=== PATIENT | female | born 1990 | race Caucasian/White ===

== ENCOUNTER 2020-05-05 15:45 | Inpatient (IN) | payer OTHER, SELFPAY ==
[2020-05-05 18:50] VITALS: BP 133/59; PULSE 113; RESP 18; TEMP 37.2; O2SAT 98; BMI 23.3
[2020-05-05 19:50] VITALS: BP 116/62; PULSE 102; RESP 15; TEMP 37.2; O2SAT 100
--- NOTE | 2020-05-05 20:54 | ED_ITS ---
HPI - Abdominal Pain General Chief Complaint: Abdominal Pain Stated Complaint: ABD PAIN - FEVER Time Seen by Provider: 05/05/20 20:49 Source: patient Mode of arrival: ambulatory History of Present Illness HPI narrative: This is a 30-year-old female with no significant past medical history who presents with 3 days of worsening suprapubic/lower abdominal discomfort and associated urinary pain/burning as well as nausea and vomiting which started last night but denies any diarrhea. Negative surgical abdomen history. Related Data Home Medications Medication Instructions Recorded Confirmed No Known Home Meds 05/05/20 05/05/20 Allergies Allergy/AdvReac Type Severity Reaction Status Date / Time acetaminophen [From Percocet] Allergy Shortness Verified 05/05/20 18:58 of Breath oxycodone [From Percocet] Allergy Shortness Verified 05/05/20 18:58 of Breath Review of Systems Review of Systems Pertinent positives and negatives as stated in HPI 10 point review of systems otherwise negative. Physical Exam Vital Signs: Vital Signs: Last Vital Signs Temp 99.8 F 05/05/20 23:33 Pulse 108 H 05/05/20 23:33 Resp 20 05/05/20 23:33 BP 115/58 L 05/05/20 23:33 Pulse Ox 99 05/05/20 23:33 Body Mass Index 23.3 VITAL SIGNS: Reviewed. GENERAL: Well developed, well nourished, mild distress. HEAD: Normocephalic/atraumatic, EYES: PERRLA, EOMI intact without pain EARS: Ext canals without abnormality, TMs non-bulging and non-erythematous NOSE: Nares patent bilateral OROPHARYNX: no oral lesions noted, posterior pharynx clear and non-erythematous without noted tonsillar enlargement/erythema/exudates NECK: Supple, no adenopathy LUNGS: Normal breath sounds. No adventitious sounds or accessory muscle use. SpO2<100> CARDIOVASCULAR: Regular rate and rhythm without noted murmurs, no JVD or lower extremity edema. ABDOMEN: Soft, diffusely tender over the lower abdomen without rebound, non- distended with bowel sounds. No rigidity. No guarding. No palpable masses or hernias noted, CVA tenderness on the right MUSCULOSKELETAL: No tenderness, deformities, or effusions noted on gross inspe ction. EXTREMITIES: No cyanosis, clubbing or edema. SKIN: Inspection of the skin reveals no rashes, ulcerations, jaundice, pallor, or petechiae. NEUROLOGIC: Alert and oriented x 4. Course Course Course Narrative: This is a 30-year-old female with history and clinical presentation most suspicious for renal colic versus pyelonephritis with sepsis. Blood cultures, lactic acid as well as antibiotics will be provided. Antibiotics will be provided as soon as labs are returned. IV fluids are not indicated at this time. -labs, UA, U preg, IV fluids, antiemetic, analgesia On review of all investigations patient is noted to meet sepsis criteria with suspected urine as the source and was given antibiotics. Otherwise, U preg is negative and chest x-ray is negative for acute findings. Case discussed with hospitalist for admission as sepsis secondary to urine and suspect pyelo. This case was discussed with the inpatient hospitalist team who is agreeable for admission. MDM - Abdominal Pain Lab Data Result diagrams: 05/05/20 21:12 05/05/20 21:11 Labs: Lab Results 05/05/20 05/05/20 05/05/20 Range/Units 21:11 21:11 21:12 WBC 29.6 H (4.8-10.8) X10*3/uL RBC 4.13 L (4.20-5.50) X10*6/uL Hgb 12.6 (12.0-16.0) g/dl Hct 37.5 (37-47) % MCV 90.8 (80-98) fL MCH 30.5 (27.0-33.0) pg MCHC 33.6 (31.0-35.0) g/dl RDW 12.6 (11.0-16.0) % Plt Count 199 (160-400) X10*3/uL MPV 10.4 (9.4-12.3) fL Immature Gran % (Auto) 2.1 H (0.0-0.4) % Neut % (Auto) 93.7 H (45-73) % Lymph % (Auto) 1.8 L (20-40) % [place] % (Auto) 1.8 L (2-11) % Eos % (Auto) 0.4 (0-4) % Baso % (Auto) 0.2 (0-2) % Lymph # (Auto) 0.5 L (1.2-4.9) X10*3/uL [place] # (Auto) 0.5 (0.1-1.2) X10*3/uL Eos # (Auto) 0.1 (0.0-0.4) X10*3/uL Baso # (Auto) 0.1 (0.0-0.2) X10*3/uL Abs Immat Gran (auto) 0.63 H (0.00-0.03) X10*3/uL Absolute Neuts (auto) 27.8 H (2.0-8.3) X10*3/uL Absolute Nucleated RBC 0.000 (0.0-0.012) X10*3/uL Nucleated RBC % (auto) 0.0 (0.0-0.2) /100WBC Smear Tech's Comments VERIFIED Sodium 136 (135-145) mmol/L Potassium 3.3 (3.3-5.1) mmol/l Chloride 102 (96-108) mmol/L Carbon Dioxide 22 (22-29) mmol/L Anion Gap 15 (12-20) BUN 9 (9-16) mg/dL Creatinine 0.76 (0.5-1.4) mg/dL Estim Creat Clear Calc 100.4 Estimated GFR > 60 Random Glucose 113 (60-115) mg/dL Lactic Acid 1.0 (0.5-2.0) mmol/L Calcium 8.9 (8.4-10.2) mg/dL Total Bilirubin 1.2 H (0.0-1.0) mg/dL AST 12 (5-31) U/L ALT 11 (0-31) U/L Alkaline Phosphatase 56 (39-117) U/L Total Protein 7.4 (6.5-8.0) g/dL Albumin 4.5 (3.5-5.0) g/dL Urine Color Urine Appearance Urine pH (5.0-8.0) Ur Specific [place] (1.005-1.025) Urine Protein (NEG-TRACE) MG/DL Urine Glucose (UA) (NEG) MG/DL Urine Ketones (NEG) MG/DL Urine Blood (NEG) Urine Nitrite (NEG) Ur Leukocyte Esterase (NEG) Urine RBC (0) /HPF Urine WBC (0-4) /HPF Urine WBC Clumps Ur Squamous Epith Cells /LPF Urine Bacteria /LPF Urine Mucus /LPF Urine Test (NEGATIVE) Urine Opiates Screen (Not Detect) Ur Barbiturates Screen (Not Detect) Ur Phencyclidine Scrn (Not Detect) Ur Amphetamines Screen (Not Detect) U Benzodiazepines Scrn (Not Detect) Urine Cocaine Screen (Not Detect) U Marijuana (THC) Screen (Not Detect) Coronavirus (PCR) (Negative) Influenza Type A (PCR) (Negative) Influenza Type B (PCR) (Negative) RSV RNA Qual (PCR) (Negative) 05/05/20 05/05/20 05/05/20 Range/Units 21:12 21:12 21:12 WBC (4.8-10.8) X10*3/uL RBC (4.20-5.50) X10*6/uL Hgb (12.0-16.0) g/dl Hct (37-47) % MCV (80-98) fL MCH (27.0-33.0) pg MCHC (31.0-35.0) g/dl RDW (11.0-16.0) % Plt Count (160-400) X10*3/uL MPV (9.4-12.3) fL Immature Gran % (Auto) (0.0-0.4) % Neut % (Auto) (45-73) % Lymph % (Auto) (20-40) % [place] % (Auto) (2-11) % Eos % (Auto) (0-4) % Baso % (Auto) (0-2) % Lymph # (Auto) (1.2-4.9) X10*3/uL [place] # (Auto) (0.1-1.2) X10*3/uL Eos # (Auto) (0.0-0.4) X10*3/uL Baso # (Auto) (0.0-0.2) X10*3/uL Abs Immat Gran (auto) (0.00-0.03) X10*3/uL Absolute Neuts (auto) (2.0-8.3) X10*3/uL Absolute Nucleated RBC (0.0-0.012) X10*3/uL Nucleated RBC % (auto) (0.0-0.2) /100WBC Smear Tech's Comments Sodium (135-145) mmol/L Potassium (3.3-5.1) mmol/l Chloride (96-108) mmol/L Carbon Dioxide (22-29) mmol/L Anion Gap (12-20) BUN (9-16) mg/dL Creatinine (0.5-1.4) mg/dL Estim Creat Clear Calc Estimated GFR Random Glucose (60-115) mg/dL Lactic Acid (0.5-2.0) mmol/L Calcium (8.4-10.2) mg/dL Total Bilirubin (0.0-1.0) mg/dL AST (5-31) U/L ALT (0-31) U/L Alkaline Phosphatase (39-117) U/L Total Protein (6.5-8.0) g/dL Albumin (3.5-5.0) g/dL Urine Color DARK YELLOW Urine Appearance HAZY Urine pH 6.0 (5.0-8.0) Ur Specific [place] >= 1.030 H (1.005-1.025) Urine Protein TRACE (NEG-TRACE) MG/DL Urine Glucose (UA) NEG (NEG) MG/DL Urine Ketones 40 (NEG) MG/DL Urine Blood 3+ H (NEG) Urine Nitrite NEG (NEG) Ur Leukocyte Esterase 1+ H (NEG) Urine RBC 5-9 H (0) /HPF Urine WBC 30-49 H (0-4) /HPF Urine WBC Clumps NOTED Ur Squamous Epith Cells 1+ /LPF Urine Bacteria 1+ /LPF Urine Mucus 3+ /LPF Urine Test NEGATIVE (NEGATIVE) Urine Opiates Screen Not Detected (Not Detect) Ur Barbiturates Screen Not Detected (Not Detect) Ur Phencyclidine Scrn Not Detected (Not Detect) Ur Amphetamines Screen Not Detected (Not Detect) U Benzodiazepines Scrn Not Detected (Not Detect) Urine Cocaine Screen Not Detected (Not Detect) U Marijuana (THC) Screen POSITIVE H (Not Detect) Coronavirus (PCR) (Negative) Influenza Type A (PCR) (Negative) Influenza Type B (PCR) (Negative) RSV RNA Qual (PCR) (Negative) 05/05/20 Range/Units 23:39 WBC (4.8-10.8) X10*3/uL RBC (4.20-5.50) X10*6/uL Hgb (12.0-16.0) g/dl Hct (37-47) % MCV (80-98) fL MCH (27.0-33.0) pg MCHC (31.0-35.0) g/dl RDW (11.0-16.0) % Plt Count (160-400) X10*3/uL MPV (9.4-12.3) fL Immature Gran % (Auto) (0.0-0.4) % Neut % (Auto) (45-73) % Lymph % (Auto) (20-40) % [place] % (Auto) (2-11) % Eos % (Auto) (0-4) % Baso % (Auto) (0-2) % Lymph # (Auto) (1.2-4.9) X10*3/uL [place] # (Auto) (0.1-1.2) X10*3/uL Eos # (Auto) (0.0-0.4) X10*3/uL Baso # (Auto) (0.0-0.2) X10*3/uL Abs Immat Gran (auto) (0.00-0.03) X10*3/uL Absolute Neuts (auto) (2.0-8.3) X10*3/uL Absolute Nucleated RBC (0.0-0.012) X10*3/uL Nucleated RBC % (auto) (0.0-0.2) /100WBC Smear Tech's Comments Sodium (135-145) mmol/L Potassium (3.3-5.1) mmol/l Chloride (96-108) mmol/L Carbon Dioxide (22-29) mmol/L Anion Gap (12-20) BUN (9-16) mg/dL Creatinine (0.5-1.4) mg/dL Estim Creat Clear Calc Estimated GFR Random Glucose (60-115) mg/dL Lactic Acid (0.5-2.0) mmol/L Calcium (8.4-10.2) mg/dL Total Bilirubin (0.0-1.0) mg/dL AST (5-31) U/L ALT (0-31) U/L Alkaline Phosphatase (39-117) U/L Total Protein (6.5-8.0) g/dL Albumin (3.5-5.0) g/dL Urine Color Urine Appearance Urine pH (5.0-8.0) Ur Specific [place] (1.005-1.025) Urine Protein (NEG-TRACE) MG/DL Urine Glucose (UA) (NEG) MG/DL Urine Ketones (NEG) MG/DL Urine Blood (NEG) Urine Nitrite (NEG) Ur Leukocyte Esterase (NEG) Urine RBC (0) /HPF Urine WBC (0-4) /HPF Urine WBC Clumps Ur Squamous Epith Cells /LPF Urine Bacteria /LPF Urine Mucus /LPF Urine Test (NEGATIVE) Urine Opiates Screen (Not Detect) Ur Barbiturates Screen (Not Detect) Ur Phencyclidine Scrn (Not Detect) Ur Amphetamines Screen (Not Detect) U Benzodiazepines Scrn (Not Detect) Urine Cocaine Screen (Not Detect) U Marijuana (THC) Screen (Not Detect) Coronavirus (PCR) NEGATIVE (Negative) Influenza Type A (PCR) NEGATIVE (Negative) Influenza Type B (PCR) NEGATIVE (Negative) RSV RNA Qual (PCR) NEGATIVE (Negative) Discharge Plan Discharge Clinical Impression: Pyelonephritis Sepsis Qualifiers: Sepsis type: sepsis due to unspecified organism Sepsis acute organ dysfunction status: without acute organ dysfunction Qualified Code(s): A41.9 - Sepsis, unspecified organism Patient Disposition: Admitted As Inpatient [facility] Past Medical History Source: nursing notes reviewed Social History Social History Alcohol intake: never Smoked in Last 30 Days: No Use of substances other than those prescribed or required for medical reasons: Yes Substance Use Type: Marijuana Substance Use Frequency: Daily Last Used Substance: Days (ago) Advance Directives: No Advance Directives Information Provided: No
[2020-05-05 21:26] LABS: Basophils Absolute Auto 0.1 X10*3/uL (0.0-0.2); Basophils Percent Auto 0.2 % (0-2); Eosinophils Absolute Auto 0.1 X10*3/uL (0.0-0.4); Eosinophils Percent Auto 0.4 % (0-4); Hematocrit 37.5 % (37-47); Hemoglobin 12.6 g/dl (12.0-16.0); Imm Gran Abs Auto 0.63 X10*3/uL (0.00-0.03); Imm Gran Pct Auto 2.1 % (0.0-0.4); Lymphocytes Absolute Auto 0.5 X10*3/uL (1.2-4.9); Lymphocytes Percent Auto 1.8 % (20-40); MANUAL DIFF FLAG SCAN; Mean Corpuscular HGB Conc 33.6 g/dl (31.0-35.0); Mean Corpuscular Hemoglobin 30.5 pg (27.0-33.0); Mean Corpuscular Volume 90.8 fL (80-98); Mean Platelet Volume 10.4 fL (9.4-12.3); Monocytes Absolute Auto 0.5 X10*3/uL (0.1-1.2); Monocytes Percent Auto 1.8 % (2-11); Neutrophils Absolute Auto 27.8 X10*3/uL (2.0-8.3); Neutrophils Percent Auto 93.7 % (45-73); Platelet Count 199 X10*3/uL (160-400); Red Blood Count 4.13 X10*6/uL (4.20-5.50); Red Cell Distribution Width 12.6 % (11.0-16.0); SCAN SMEAR FLAG 1; White Blood Count 29.6 X10*3/uL (4.8-10.8)
[2020-05-05 21:28] LABS: Glucose Urine UA NEG (NEG); Leukocyte Esterase Urine 1+ (NEG); Nitrite Urine NEG (NEG); Specific Gravity - Urine >= 1.030 (1.005-1.025); Urine Blood 3+ (NEG); Urine Ketones 40 MG/DL (NEG); Urine Protein TRACE MG/DL (NEG-TRACE)
[2020-05-05 21:33] LABS: Appearance Urine HAZY; Color Urine DARK YELLOW
[2020-05-05 21:34] LABS: UPreg QC Valid YES; Urine Pregnancy NEGATIVE (NEGATIVE)
[2020-05-05 21:39] LABS: Bacteria Urine 1+ /LPF; Mucus Urine 3+ /LPF; Squamous Epithelial Cell Urine 1+ /LPF; WBC Clumps Urine NOTED; WBC Urine 30-49 /HPF (0-4)
[2020-05-05 21:43] LABS: SLIDE REVIEW VERIFIED
--- NOTE | 2020-05-05 21:43 | CT_ITS ---
EXAMINATION: CT ABDOMEN AND PELVIS WITH CONTRAST CLINICAL INFORMATION: Lower abdominal and right flank pain. COMPARISON: None TECHNIQUE: Multidetector volumetric images were obtained from the superior aspect of the liver through the pubic symphysis following administration 85 mL of Omnipaque 350 intravenous contrast. Sagittal and coronal reformatted images were obtained on the technologist's workstation. Oral contrast: No This CT examination was performed using dose optimization techniques as appropriate, variously including the following: *Automated exposure control *Adjustment of mA and/or kV according to patient size (this includes techniques or standardized protocols for targeted exams where dose is matched to indication/reason for exam; i.e. extremities or head) *Use of iterative reconstruction technique DLP: 620.91 mGy-cm FINDINGS: LUNG BASES: The visualized lung bases are unremarkable. LIVER, GALLBLADDER, AND BILIARY TREE: Unremarkable. PANCREAS: Unremarkable. SPLEEN: Unremarkable. ADRENAL GLANDS: Unremarkable. KIDNEYS AND URETERS: The kidneys are normal in size, shape, and attenuation. No hydronephrosis, hydroureter, or calculi seen. No perinephric stranding. BLADDER: Unremarkable. GASTROINTESTINAL TRACT: The small and large bowel are unremarkable. The appendix is unremarkable. ABDOMINAL WALL: Very small fat-containing inferior periumbilical hernia. LYMPH NODES: Normal. VASCULAR: There is mild ectasia of the gonadal veins bilaterally with associated ectasia of the periuterine veins. PELVIC VISCERA: Retroverted/retroflexed uterus without focal abnormality. No adnexal abnormality. Mild free fluid in the cul-de-sac. OSSEOUS STRUCTURES: Unremarkable. CT/CT abdomen pelvis w con IMPRESSION: 1. No significant renal abnormality. No evidence for pyelonephritis. 2. Mild ectasia of the gonadal veins bilaterally with associated ectasia of the periuterine vessels suggesting pelvic congestion. Mild free fluid in the cul-de-sac is likely physiologic.2
[2020-05-05 21:53] LABS: Alanine Aminotransferase 11 U/L (0-31); Albumin Level 4.5 g/dL (3.5-5.0); Alkaline Phosphatase 56 U/L (39-117); Anion Gap 15 (12-20); Aspartate Amino Transferase 12 U/L (5-31); Bilirubin Total 1.2 mg/dL (0.0-1.0); Blood Urea Nitrogen 9 mg/dL (9-16); Calcium 8.9 mg/dL (8.4-10.2); Carbon Dioxide 22 mmol/L (22-29); Chloride 102 mmol/L (96-108); Creatinine Clr Calc Pharmacy 100.4; Estimated Glomerular Filt Rate > 60; Glucose Random 113 mg/dL (60-115); Potassium 3.3 mmol/l (3.3-5.1); Sodium 136 mmol/L (135-145); Total Protein 7.4 g/dL (6.5-8.0)
[2020-05-05 21:54] VITALS: BP 103/50; PULSE 101; RESP 20; TEMP 37.3; O2SAT 99
[2020-05-05] MEDS: ondansetron HCL 4 MG/2 ML VIAL IVPUSH (21:54)
[2020-05-05] MEDS: 0.9 % Sodium Chloride 1,000 ML 999 ML IV (21:54)
[2020-05-05] MEDS: iohexoL 350 MG/ML 100 ML INFUS..BTL IV (22:12)
[2020-05-05 22:20] VITALS: TEMP 37.9
--- NOTE | 2020-05-05 22:42 | XR_ITS ---
EXAMINATION: XR CHEST CLINICAL INFORMATION: Cough COMPARISON: None TECHNIQUE: Frontal view of the chest was obtained. FINDINGS: Bilateral nipple piercings. The lungs are well expanded. There is no focal consolidation, edema, or effusion. No pneumothorax. The cardiomediastinal silhouette is within normal limits. No acute osseous abnormality. XR/XR chest 1V IMPRESSION: No acute pulmonary finding.
[2020-05-05 23:28] LABS: Amphetamine Screen Urine Not Detected (Not Detect); Barbiturates, Urine Not Detected (Not Detect); Benzodiazepines Screen Urine Not Detected (Not Detect); Cannabinoid Screen Urine POSITIVE (Not Detect); Cocaine Screen Urine Not Detected (Not Detect); Opiate Screen Urine Not Detected (Not Detect); Phencyclidine Screen Urine Not Detected (Not Detect)
[2020-05-05] MEDS: cefTRIAXone sodium 2 GM in 0.9 % Sodium Chloride 50 ML IV (23:32)
[2020-05-05 23:33] VITALS: BP 115/58; PULSE 108; RESP 20; TEMP 37.7; O2SAT 99
[2020-05-05] MEDS: Ketorolac Tromethamine 15 MG/ML VIAL IVPUSH (23:33)
[2020-05-06 00:56] LABS: Influenza A PCR NEGATIVE (Negative); Influenza B PCR NEGATIVE (Negative); Resp Syncy Virus RNA Qual PCR NEGATIVE (Negative); SARS COV2 PCR INHOUSE NEGATIVE (Negative)
--- NOTE | 2020-05-06 01:56 | PM.IMHP ---
History of Present Illness Date of Service: 05/06/20 Chief Complaint: Lower abd pain, dysuria, nausea/vomiting 30 year old woman without significant past medical history presented with 3 days of lower abdominal pain/pressure associated with fevers and dysuria. She also noted right flank pain today as well. No history of recurrent UTIs or kidney stones. States she felt the pressure and had been having periods of chills and sweats at home. Did measure a fever at home as well. On presentation was noted to have significant leukocytosis and fever/tachycardia so referred for admission as she had been having nausea and vomiting and was unlikely to be able to tolerate oral antibiotics at home. Review of Systems Constitutional: Comments: Fevers and chills noted Cardiovascular: Comments: No chest pain Respiratory: Comments: No cough or dyspnea Gastrointestinal: Gastrointestinal: Reports nausea and Reports vomiting Comments: Lower abd pain Genitourinary: Comments: Dysuria Musculoskeletal: Comments: Flank pain Psychiatric: Psychiatric: Reports no additional psychiatric complaints PMFSH Functional capacity: independent ambulation Patient : No Family history: reviewed and not pertinent Social History Alcohol intake: never Smoked in Last 30 Days: No Use of substances other than those prescribed or required for medical reasons: Yes Substance Use Type: Marijuana Substance Use Frequency: Daily Last Used Substance: Days (ago) Advance Directives: No Advance Directives Information Provided: No Meds Allergies Allergy/AdvReac Type Severity Reaction Status Date / Time acetaminophen [From Percocet] Allergy Shortness Verified 05/05/20 18:58 of Breath oxycodone [From Percocet] Allergy Shortness Verified 05/05/20 18:58 of Breath Home Medications Medication Instructions Recorded Confirmed Type No Known Home Meds 05/05/20 05/05/20 History Physical Exam Vital Signs and Narrative: Vital Signs: Last Vital Signs Temp 99.8 F 05/05/20 23:33 Pulse 108 H 05/05/20 23:33 Resp 20 05/05/20 23:33 BP 115/58 L 05/05/20 23:33 Pulse Ox 99 05/05/20 23:33 Body Mass Index 23.3 Const: General: cooperative and no acute distress HENMT: Head: Yes normal to inspection Eyes: General: appearance normal, both eyes and all related structures Chest: Chest palpation & inspection: normal inspection of the chest Resp: Other: No insp crackles or exp wheezes Effort & Inspection: normal respiratory effort Cardio: Rate: regular rate Rhythm: regular rhythm Heart sounds: S1 normal heart sound present and S2 normal heart sound present GI: Other: tender in lower abdomen, no guarding Inspection: Yes normal to inspection Auscultation: normal bowel sounds : General: Yes CVA tenderness (right side) Back/Spine/Pelvis: Back: CVA tenderness (right side) Skin: General skin exam: no rashes or lesions noted Psych: Other: no anxiety Appearance: grossly normal Results Labs CBC and Chem 7: 05/05/20 21:12 05/05/20 21:11 Labs: Laboratory Results - last 24 hr 05/05/20 05/05/20 05/05/20 21:11 21:11 21:12 MCV 90.8 MCH 30.5 MCHC 33.6 RDW 12.6 Plt Count 199 MPV 10.4 Immature Gran % (Auto) 2.1 H Neut % (Auto) 93.7 H Lymph % (Auto) 1.8 L [place] % (Auto) 1.8 L Eos % (Auto) 0.4 Baso % (Auto) 0.2 Lymph # (Auto) 0.5 L [place] # (Auto) 0.5 Eos # (Auto) 0.1 Baso # (Auto) 0.1 Abs Immat Gran (auto) 0.63 H Absolute Neuts (auto) 27.8 H Absolute Nucleated RBC 0.000 Nucleated RBC % (auto) 0.0 Smear Tech's Comments VERIFIED Anion Gap 15 Estim Creat Clear Calc 100.4 Estimated GFR > 60 Random Glucose 113 Lactic Acid 1.0 Calcium 8.9 Total Bilirubin 1.2 H AST 12 ALT 11 Alkaline Phosphatase 56 Total Protein 7.4 Albumin 4.5 Urine Color Urine Appearance Urine pH Ur Specific [place] Urine Protein Urine Glucose (UA) Urine Ketones Urine Blood Urine Nitrite Ur Leukocyte Esterase Urine RBC Urine WBC Urine WBC Clumps Ur Squamous Epith Cells Urine Bacteria Urine Mucus Urine Test Urine Opiates Screen Ur Barbiturates Screen Ur Phencyclidine Scrn Ur Amphetamines Screen U Benzodiazepines Scrn Urine Cocaine Screen U Marijuana (THC) Screen Coronavirus (PCR) Influenza Type A (PCR) Influenza Type B (PCR) RSV RNA Qual (PCR) 05/05/20 05/05/20 05/05/20 21:12 21:12 21:12 MCV MCH MCHC RDW Plt Count MPV Immature Gran % (Auto) Neut % (Auto) Lymph % (Auto) [place] % (Auto) Eos % (Auto) Baso % (Auto) Lymph # (Auto) [place] # (Auto) Eos # (Auto) Baso # (Auto) Abs Immat Gran (auto) Absolute Neuts (auto) Absolute Nucleated RBC Nucleated RBC % (auto) Smear Tech's Comments Anion Gap Estim Creat Clear Calc Estimated GFR Random Glucose Lactic Acid Calcium Total Bilirubin AST ALT Alkaline Phosphatase Total Protein Albumin Urine Color DARK YELLOW Urine Appearance HAZY Urine pH 6.0 Ur Specific [place] >= 1.030 H Urine Protein TRACE Urine Glucose (UA) NEG Urine Ketones 40 Urine Blood 3+ H Urine Nitrite NEG Ur Leukocyte Esterase 1+ H Urine RBC 5-9 H Urine WBC 30-49 H Urine WBC Clumps NOTED Ur Squamous Epith Cells 1+ Urine Bacteria 1+ Urine Mucus 3+ Urine Test NEGATIVE Urine Opiates Screen Not Detected Ur Barbiturates Screen Not Detected Ur Phencyclidine Scrn Not Detected Ur Amphetamines Screen Not Detected U Benzodiazepines Scrn Not Detected Urine Cocaine Screen Not Detected U Marijuana (THC) Screen POSITIVE H Coronavirus (PCR) Influenza Type A (PCR) Influenza Type B (PCR) RSV RNA Qual (PCR) 05/05/20 23:39 MCV MCH MCHC RDW Plt Count MPV Immature Gran % (Auto) Neut % (Auto) Lymph % (Auto) [place] % (Auto) Eos % (Auto) Baso % (Auto) Lymph # (Auto) [place] # (Auto) Eos # (Auto) Baso # (Auto) Abs Immat Gran (auto) Absolute Neuts (auto) Absolute Nucleated RBC Nucleated RBC % (auto) Smear Tech's Comments Anion Gap Estim Creat Clear Calc Estimated GFR Random Glucose Lactic Acid Calcium Total Bilirubin AST ALT Alkaline Phosphatase Total Protein Albumin Urine Color Urine Appearance Urine pH Ur Specific [place] Urine Protein Urine Glucose (UA) Urine Ketones Urine Blood Urine Nitrite Ur Leukocyte Esterase Urine RBC Urine WBC Urine WBC Clumps Ur Squamous Epith Cells Urine Bacteria Urine Mucus Urine Test Urine Opiates Screen Ur Barbiturates Screen Ur Phencyclidine Scrn Ur Amphetamines Screen U Benzodiazepines Scrn Urine Cocaine Screen U Marijuana (THC) Screen Coronavirus (PCR) NEGATIVE Influenza Type A (PCR) NEGATIVE Influenza Type B (PCR) NEGATIVE RSV RNA Qual (PCR) NEGATIVE Imaging Radiologist's Impressions: Impressions Abdomen/Pelvis CT 05/05/20 21:43 IMPRESSION: 1. No significant renal abnormality. No evidence for pyelonephritis. 2. Mild ectasia of the gonadal veins bilaterally with associated ectasia of the periuterine vessels suggesting pelvic congestion. Mild free fluid in the cul-de-sac is likely physiologic.2 Chest X-Ray 05/05/20 22:42 IMPRESSION: No acute pulmonary finding. Assessment and Plan (1) Sepsis: Qualifiers: Sepsis acute organ dysfunction status: without acute organ dysfunction Sepsis type: sepsis due to unspecified organism Qualified Code(s): A41.9 - Sepsis, unspecified organism Status: Acute (2) Pyelonephritis: Status: Acute 30 year old woman presented with pyelonephritis and sepsis (SIRS criteria include tachycardia, fever, leukocytosis). Also had nausea and vomiting so was referred for inpatient admission as doubtful she could take PO antibiotics consistenly. Sepsis due to pyelonephritis Started on Ceftriaxone in ED-continue at 1 gram q24 hr dosing. Followup on urine cultures. Blood cultures not drawn prior to Ceftriaxone so would be low yield to draw them now. Pain control with IV Toradol. DVT proph She ambulates so low risk. Code status Full code.
[2020-05-06 03:00] VITALS: BP 103/53; PULSE 99; RESP 16; TEMP 37.1; O2SAT 100
[2020-05-06] MEDS: 0.9 % Sodium Chloride 1,000 ML 100 ML IVCONT ×3 (03:16→16:13)
[2020-05-06 03:25] VITALS: BMI 20.2
[2020-05-06] MEDS: Ketorolac Tromethamine 15 MG/ML VIAL IV ×4 (04:13→22:22)
[2020-05-06 07:21] VITALS: BP 107/55; PULSE 86; RESP 18; TEMP 36.8; O2SAT 98
--- NOTE | 2020-05-06 10:04 | MHC.CM.PN ---
dc plan home no servceis pt has own transportaion home
[2020-05-06 12:00] VITALS: BP 101/50; PULSE 91; RESP 16; TEMP 36.7; O2SAT 100
[2020-05-06 15:36] VITALS: BP 108/58; PULSE 100; RESP 18; TEMP 37.6; O2SAT 99
[2020-05-06 18:55] VITALS: BP 109/54; PULSE 91; RESP 18; TEMP 37.2; O2SAT 98
[2020-05-06] MEDS: cefTRIAXone sodium 1 GM in 0.9 % Sodium Chloride 50 ML IV (22:24)
[2020-05-06 23:26] VITALS: BP 103/52; PULSE 96; RESP 18; TEMP 36.6; O2SAT 96
[2020-05-06] MEDS: 0.9 % Sodium Chloride Flush 3 ML SYRINGE IVFLUSH (23:57)
[2020-05-07] MEDS: 0.9 % Sodium Chloride 1,000 ML 100 ML IVCONT (03:17)
[2020-05-07 03:32] VITALS: BP 115/58; PULSE 100; RESP 20; TEMP 36.9; O2SAT 100
[2020-05-07 07:07] LABS: Basophils Percent Auto 0.2 % (0-2); Eosinophils Percent Auto 0.1 % (0-4); Hematocrit 31.7 % (37-47); Hemoglobin 10.6 g/dl (12.0-16.0); Imm Gran Abs Auto 0.35 X10*3/uL (0.00-0.03); Imm Gran Pct Auto 1.9 % (0.0-0.4); Lymphocytes Absolute Auto 0.7 X10*3/uL (1.2-4.9); Lymphocytes Percent Auto 3.6 % (20-40); MANUAL DIFF FLAG SCAN; Mean Corpuscular HGB Conc 33.4 g/dl (31.0-35.0); Mean Corpuscular Hemoglobin 30.4 pg (27.0-33.0); Mean Corpuscular Volume 90.8 fL (80-98); Mean Platelet Volume 10.6 fL (9.4-12.3); Monocytes Absolute Auto 0.3 X10*3/uL (0.1-1.2); Monocytes Percent Auto 1.4 % (2-11); Neutrophils Absolute Auto 17.2 X10*3/uL (2.0-8.3); Neutrophils Percent Auto 92.8 % (45-73); Platelet Count 170 X10*3/uL (160-400); Red Blood Count 3.49 X10*6/uL (4.20-5.50); Red Cell Distribution Width 12.6 % (11.0-16.0); SCAN SMEAR FLAG 1; White Blood Count 18.5 X10*3/uL (4.8-10.8)
[2020-05-07 07:08] LABS: Anion Gap 13 (12-20); Blood Urea Nitrogen 10 mg/dL (9-16); Calcium 7.6 mg/dL (8.4-10.2); Carbon Dioxide 21 mmol/L (22-29); Chloride 105 mmol/L (96-108); Creatinine Clr Calc Pharmacy 112.8; Estimated Glomerular Filt Rate > 60; Glucose Random 83 mg/dL (60-115); Potassium 3.2 mmol/l (3.3-5.1); Sodium 136 mmol/L (135-145)
[2020-05-07 07:33] LABS: SLIDE REVIEW VERIFIED
[2020-05-07 07:41] VITALS: BP 101/52; PULSE 95; RESP 18; TEMP 37.3; O2SAT 99
--- NOTE | 2020-05-07 10:26 | HO.PM.IMPN ---
Subjective Subjective Date of Service: 05/07/20 Interval History: Seen in follow-up for sepsis related to acute pyelonephritis/UTI. Still having lots of pain and not able tolerate oral intake Review of Systems Gen: no fever Resp: no sob, no cough CV: no chest, no LIGHT, no leg edema GI: No n/v, abdominal and right flank ternderness Neuro: No confusion Physical Exam Vital Signs: Vital Signs: Last Vital Signs Temp 99.2 F 05/07/20 07:41 Pulse 95 05/07/20 07:41 Resp 18 05/07/20 07:41 BP 101/52 L 05/07/20 07:41 Pulse Ox 99 05/07/20 07:41 Body Mass Index 20.2 General: AO X 3, no acute distress Resp: CTA bilateral CVS: S1,S2,RRR GI: +BS, NT, no distention, righ flank tenderness Skin: No rash Neuro: motor grossly intact Psych: appropriate affect Objective Data Current Medications Generic Name Dose Route Start Last Admin Trade Name Freq PRN Reason Stop Dose Admin Sodium Chloride 1,000 mls @ 100 mls/hr 05/06/20 01:45 05/07/20 03:17 Ns IVCONT 100 mls/hr .Q10H ERICA Administration Ceftriaxone Sodium 1 gm/ 50 mls @ 100 mls/hr 05/06/20 22:00 05/06/20 23:17 Sodium Chloride IV Infused DAILY@2200 ERICA Infusion Ketorolac Tromethamine 15 mg 05/07/20 09:31 Ketorolac Tromethamine 15 Mg/Ml Vial IVPUSH Q6H PRN Pain, Mild (Pain Scale 1-3) Oxycodone HCl 5 mg 05/06/20 08:30 Oxycodone Hcl Immed Release 5 Mg Tablet PO Q4H PRN Pain, Severe (Pain Scale 7-10) Sodium Chloride 3 ml 05/06/20 08:00 05/07/20 08:30 0.9 % Sodium Chloride Flush 3 Ml Syringe IVFLUSH Not Given QSHIFT [facility] Labs CBC & Chem 7: 05/07/20 05:27 05/07/20 05:27 Microbiology Microbiology Results: Microbiology 05/05/20 21:11 Blood - Venous Blood Culture - Preliminary No growth after 24 hours. 05/05/20 21:12 Blood - Venous Blood Culture - Preliminary No growth after 24 hours. 05/05/20 Unknown Urine clean catch - Clean Catch Midstream Urine Culture - Preliminary No growth to date. Assessment and Plan (1) Sepsis: Status: Acute (2) Pyelonephritis: Status: Acute Assessment and Plan: 30 year old woman presented with pyelonephritis and sepsis (SIRS criteria include tachycardia, fever, leukocytosis). Sepsis due to pyelonephritis-- Leukocytosis is down to 18K from 29K. She is still not tolerating Oral and having lots pain. Urine and blood cultures negative. -Continue Ceftriaxone D2, follow cultures, Toradol for pain. ID consult DVT proph She ambulates so low risk. Code status Full code.
[2020-05-07 11:33] VITALS: BP 122/61; PULSE 89; RESP 18; TEMP 37.2; O2SAT 100
[2020-05-07 12:01] LABS: Anion Gap 13 (12-20); Blood Urea Nitrogen 9 mg/dL (9-16); Calcium 7.7 mg/dL (8.4-10.2); Carbon Dioxide 22 mmol/L (22-29); Chloride 104 mmol/L (96-108); Creatinine Clr Calc Pharmacy 116.4; Estimated Glomerular Filt Rate > 60; Glucose Random 89 mg/dL (60-115); Potassium 3.1 mmol/l (3.3-5.1); Sodium 136 mmol/L (135-145)
[2020-05-07] MEDS: Ketorolac Tromethamine 15 MG/ML VIAL IVPUSH ×2 (12:16→22:03)
[2020-05-07 14:24] VITALS: BP 120/53; PULSE 83; RESP 18; TEMP 36.8; O2SAT 98
[2020-05-07 15:20] VITALS: BP 118/57; PULSE 75; RESP 18; TEMP 36.9; O2SAT 99
[2020-05-07] MEDS: 0.9 % Sodium Chloride Flush 3 ML SYRINGE IVFLUSH ×2 (15:37→22:04)
[2020-05-07 19:19] VITALS: BP 113/59; PULSE 80; RESP 18; TEMP 37.1; O2SAT 100
[2020-05-07] MEDS: cefTRIAXone sodium 1 GM in 0.9 % Sodium Chloride 50 ML IV (22:03)
[2020-05-08 01:13] VITALS: BP 120/65; PULSE 81; RESP 18; TEMP 36.9; O2SAT 99
[2020-05-08 04:28] VITALS: BP 110/59; PULSE 67; RESP 18; TEMP 37.3; O2SAT 99
[2020-05-08 07:52] LABS: Hematocrit 31.1 % (37-47); Hemoglobin 10.4 g/dl (12.0-16.0); Mean Corpuscular HGB Conc 33.4 g/dl (31.0-35.0); Mean Corpuscular Hemoglobin 30.2 pg (27.0-33.0); Mean Corpuscular Volume 90.4 fL (80-98); Mean Platelet Volume 10.3 fL (9.4-12.3); Platelet Count 195 X10*3/uL (160-400); Red Blood Count 3.44 X10*6/uL (4.20-5.50); Red Cell Distribution Width 12.6 % (11.0-16.0); White Blood Count 9.4 X10*3/uL (4.8-10.8)
[2020-05-08 08:00] VITALS: BP 115/57; PULSE 88; RESP 16; TEMP 37.1; O2SAT 98
[2020-05-08] MEDS: 0.9 % Sodium Chloride Flush 3 ML SYRINGE IVFLUSH (08:08)
--- NOTE | 2020-05-08 08:13 | PM.DS ---
DS: Providers Provider Date of admission: 05/06/20 01:43 Primary care physician: Unknown Physician DS: Diagnosis Discharge Diagnosis (1) Sepsis: Status: Resolved (2) Pyelonephritis: Status: Acute DS: Medications Discharge Medications Home Medications: Home Medications Medication Instructions Recorded Confirmed No Known Home Meds 05/05/20 05/05/20 DS: Summary Hospital Course Hospital Course: Chief Complaint: Lower abd pain, dysuria, nausea/vomiting 30 year old woman without significant past medical history presented with 3 days of lower abdominal pain/pressure associated with fevers and dysuria. She also noted right flank pain today as well. No history of recurrent UTIs or kidney stones. States she felt the pressure and had been having periods of chills and sweats at home. Did measure a fever at home as well. On presentation was noted to have significant leukocytosis and fever/tachycardia so referred for admission as she had been having nausea and vomiting and was unlikely to be able to tolerate oral antibiotics at home. Hospital course: Patient was admitted for acute pyelonephritis with sepsis. She was treated in the hospital with IV [place]ftri[place] [address] has not come down to [phone] which is normal. She is not having any fever her flank pain and abdominal pain has significantly improved. Urine culture has not grown anything. She will be transitioned to oral Ceftin for total of 14 days of treatment. She feels comfortable going home today. She is advised to follow up with primary care physician or return to the hospital should her symptoms continue to escalate. Time Spent with Patient Time attestation: Total time spent providing and/or coordinating discharge services: Physical Exam Vital Signs: Vital Signs: Last Vital Signs Temp 99.1 F 05/08/20 04:28 Pulse 67 05/08/20 04:28 Resp 18 05/08/20 04:28 BP 110/59 L 05/08/20 04:28 Pulse Ox 99 05/08/20 04:28 Body Mass Index 20.2 General: AO X 3, no acute distress Resp: CTA bilateral CVS: S1,S2,RRR GI: +BS, NT, no distention Skin: No rash Neuro: motor grossly intact Psych: appropriate affect DS: Data Data Completed and Pending Labs on day of discharge: 05/05/20 Urine Culture Routine 05/05/20 20:49 0.9 % Sodium Chloride [Ns] 1,000 ml IV 999 mls/hr ondansetron HCL [Zofran] 4 mg IVPUSH ONCE ONE 05/05/20 21:11 Comprehensive Met. Panel Stat Lactic Acid Stat 05/05/20 21:12 Complete Blood Count Auto Diff Stat Drug Screen Urine Stat SLIDE REVIEW Stat Ur Preg Test Stat Ketorolac Tromethamine [Toradol] 15 mg IVPUSH ONCE ONE 05/05/20 21:41 cefTRIAXone sodium [Rocephin] 2 gm 0.9 % Sodium Chloride [Ns] 50 ml IV ONCE 05/05/20 21:43 CT abdomen pelvis w con Stat 05/05/20 22:12 iohexoL 350 MG/ML [Omnipaque 350 MG/ML] 100 ml IV ONCE ONE 05/05/20 22:42 XR chest 1V Stat Add Laboratory Test Stat 05/05/20 22:54 cefTRIAXone sodium [Rocephin] 2 gm .ROUTE .STK-MED ONE 05/05/20 23:39 SARS-CoV2/FLU/RSV Stat 05/06/20 01:42 Transfer Order Routine 05/06/20 01:43 IV insert/maintain Q4HR Intake and Output QSHIFTE Vital Signs QSHIFT 05/06/20 01:47 Ketorolac Tromethamine [Toradol] 15 mg IVPUSH Q6H PRN 05/06/20 04:00 Ketorolac Tromethamine [Toradol] 15 mg IV Q6H 05/06/20 08:00 0.9 % Sodium Chloride Flush [NS Flush] 3 ml IVFLUSH QSHIFT 05/06/20 22:16 cefTRIAXone sodium [Rocephin] 1 gm .ROUTE .STK-MED ONE 05/07/20 05:27 Basic Metabolic Panel Routine Complete Blood Count Auto Diff Routine SLIDE REVIEW Routine 05/07/20 10:40 Transfer Order Routine 05/07/20 11:20 Basic Metabolic Panel Routine 05/07/20 15:22 Transfer Order Routine 05/07/20 21:58 cefTRIAXone sodium [Rocephin] 1 gm .ROUTE .STK-MED ONE 05/08/20 06:58 Complete Blood Count no Diff DAILY@0600 Laboratory Last Values WBC 9.4 X10*3/uL (4.8-10.8) 05/08/20 06:58 WBC Cancelled 05/08/20 06:58 RBC 3.44 X10*6/uL (4.20-5.50) L 05/08/20 06:58 RBC Cancelled 05/08/20 06:58 Hgb 10.4 g/dl (12.0-16.0) L 05/08/20 06:58 Hgb Cancelled 05/08/20 06:58 Hct 31.1 % (37-47) L 05/08/20 06:58 Hct Cancelled 05/08/20 06:58 MCV 90.4 fL (80-98) 05/08/20 06:58 MCV Cancelled 05/08/20 06:58 MCH 30.2 pg (27.0-33.0) 05/08/20 06:58 MCH Cancelled 05/08/20 06:58 MCHC 33.4 g/dl (31.0-35.0) 05/08/20 06:58 MCHC Cancelled 05/08/20 06:58 RDW 12.6 % (11.0-16.0) 05/08/20 06:58 RDW Cancelled 05/08/20 06:58 Plt Count 195 X10*3/uL (160-400) 05/08/20 06:58 Plt Count Cancelled 05/08/20 06:58 MPV 10.3 fL (9.4-12.3) 05/08/20 06:58 MPV Cancelled 05/08/20 06:58 Immature Gran % (Auto) 1.9 % (0.0-0.4) H 05/07/20 05:27 Neut % (Auto) 92.8 % (45-73) H 05/07/20 05:27 Lymph % (Auto) 3.6 % (20-40) L 05/07/20 05:27 [place] % (Auto) 1.4 % (2-11) L 05/07/20 05:27 Eos % (Auto) 0.1 % (0-4) 05/07/20 05:27 Baso % (Auto) 0.2 % (0-2) 05/07/20 05:27 Lymph # (Auto) 0.7 X10*3/uL (1.2-4.9) L 05/07/20 05:27 [place] # (Auto) 0.3 X10*3/uL (0.1-1.2) 05/07/20 05:27 Eos # (Auto) 0.0 X10*3/uL (0.0-0.4) 05/07/20 05:27 Baso # (Auto) 0.0 X10*3/uL (0.0-0.2) 05/07/20 05:27 Abs Immat Gran (auto) 0.35 X10*3/uL (0.00-0.03) H 05/07/20 05:27 Absolute Neuts (auto) 17.2 X10*3/uL (2.0-8.3) H 05/07/20 05:27 Absolute Nucleated RBC 0.000 X10*3/uL (0.0-0.012) 05/08/20 06:58 Absolute Nucleated RBC Cancelled 05/08/20 06:58 Nucleated RBC % (auto) 0.0 /100WBC (0.0-0.2) 05/08/20 06:58 Nucleated RBC % (auto) Cancelled 05/08/20 06:58 Smear Tech's Comments VERIFIED 05/07/20 05:27 Sodium 136 mmol/L (135-145) 05/07/20 11:20 Potassium 3.1 mmol/l (3.3-5.1) L 05/07/20 11:20 Chloride 104 mmol/L (96-108) 05/07/20 11:20 Carbon Dioxide 22 mmol/L (22-29) 05/07/20 11:20 Anion Gap 13 (12-20) 05/07/20 11:20 BUN 9 mg/dL (9-16) 05/07/20 11:20 Creatinine 0.63 mg/dL (0.5-1.4) 05/07/20 11:20 Estim Creat Clear Calc 116.4 05/07/20 11:20 Estimated GFR > 60 05/07/20 11:20 Random Glucose 89 mg/dL (60-115) 05/07/20 11:20 Lactic Acid 1.0 mmol/L (0.5-2.0) 05/05/20 21:11 Calcium 7.7 mg/dL (8.4-10.2) L 05/07/20 11:20 Total Bilirubin 1.2 mg/dL (0.0-1.0) H 05/05/20 21:11 AST 12 U/L (5-31) 05/05/20 21:11 ALT 11 U/L (0-31) 05/05/20 21:11 Alkaline Phosphatase 56 U/L (39-117) 05/05/20 21:11 Total Protein 7.4 g/dL (6.5-8.0) 05/05/20 21:11 Albumin 4.5 g/dL (3.5-5.0) 05/05/20 21:11 Urine Color DARK YELLOW 05/05/20 21:12 Urine Appearance HAZY 05/05/20 21:12 Urine pH 6.0 (5.0-8.0) 05/05/20 21:12 Ur Specific [place] >= 1.030 (1.005-1.025) H 05/05/20 21:12 Urine Protein TRACE MG/DL (NEG-TRACE) 05/05/20 21:12 Urine Glucose (UA) NEG MG/DL (NEG) 05/05/20 21:12 Urine Ketones 40 MG/DL (NEG) 05/05/20 21:12 Urine Blood 3+ (NEG) H 05/05/20 21:12 Urine Nitrite NEG (NEG) 05/05/20 21:12 Ur Leukocyte Esterase 1+ (NEG) H 05/05/20 21:12 Urine RBC 5-9 /HPF (0) H 05/05/20 21:12 Urine WBC 30-49 /HPF (0-4) H 05/05/20 21:12 Urine WBC Clumps NOTED 05/05/20 21:12 Ur Squamous Epith Cells 1+ /LPF 05/05/20 21:12 Urine Bacteria 1+ /LPF 05/05/20 21:12 Urine Mucus 3+ /LPF 05/05/20 21:12 Urine Test NEGATIVE (NEGATIVE) 05/05/20 21:12 Urine Opiates Screen Not Detected (Not Detect) 05/05/20 21:12 Ur Barbiturates Screen Not Detected (Not Detect) 05/05/20 21:12 Ur Phencyclidine Scrn Not Detected (Not Detect) 05/05/20 21:12 Ur Amphetamines Screen Not Detected (Not Detect) 05/05/20 21:12 U Benzodiazepines Scrn Not Detected (Not Detect) 05/05/20 21:12 Urine Cocaine Screen Not Detected (Not Detect) 05/05/20 21:12 U Marijuana (THC) Screen POSITIVE (Not Detect) H 05/05/20 21:12 Coronavirus (PCR) NEGATIVE (Negative) 05/05/20 23:39 Influenza Type A (PCR) NEGATIVE (Negative) 05/05/20 23:39 Influenza Type B (PCR) NEGATIVE (Negative) 05/05/20 23:39 RSV RNA Qual (PCR) NEGATIVE (Negative) 05/05/20 23:39 Preliminary micro results at discharge 05/05/20 21:11 Blood Culture - Preliminary Blood - Venous No growth after 48 hours. 05/05/20 21:12 Blood Culture - Preliminary Blood - Venous No growth after 48 hours. Discharge Plan Discharge Anticipated Discharge Date/Time: 05/08/20 08:16 Patient Disposition: Home, Self-Care Referrals: Physician,Unknown [Primary Care Provider] - Discharge Medications: New cefuroxime axetil 500 mg Tablet 500 mg PO Q12H Qty: 22 RF: 0 oxycodone 5 mg Tablet 5 mg PO Q4H PRN (Reason: Pain, Severe (Pain Scale 7-10)) Qty: 10 RF: 0 Discharge Orders: Discharge Order (Routine); Ordered 05/08/20 Ordered By: Neptali Faith Activity on Discharge: As tolerated Visit Report Forms: Patient Portal Discharge page Care Plan Goals: Full recovery from pyelonephritis Health Concerns: No new concern at this time. Plan of Treatment: Take cefuroxime (Ceftin ) as recommended, follow-up with her primary care doctor within a week. Call for appointment. Discharge Date/Time: 05/08/20 12:29
--- NOTE | 2020-05-08 08:34 | MHC.CM.PN ---
[facility] DO[facility] NOTE ELECTRONIC MEDICAL RECORD REVIEWED ALONG WITH CASE DISCUSSED WITH STAFF NURSE , REVIEWED DISCHARGE ORDERS . PATIENT YOLIE BE DISCHARGED HOME TODAY DISCHArge plan home no services transportation patient to self arrange
== END 2020-05-08 12:29 | disposition home or self-care (01) | DRG 720 ==
LOC: HO.ED 23:08 → HO.IMC 05-06 02:17 → HO.S3 05-07 13:59
PROVIDERS: Admitting Provider Internal Medicine; Emergency Provider Student in an Organized Health Care Education/Training Program; Visit Provider Internal Medicine
DX: A41.9 Sepsis, unspecified organism (principal); N10 Acute pyelonephritis; Z20.828 Contact with and (suspected) exposure to other viral communicable diseases; Z88.5 Allergy status to narcotic agent; Z88.6 Allergy status to analgesic agent; Z79.899 Other long term (current) drug therapy
CPT/HCPCS: 0241U; 36415; 71045; 74177; 80048; 80053; 80307; 81001; 81025; 83605; 85025; 85027; 87040; 87086; 96361; 96365; 96375; 99284; 99285; J0696; J1885; J2405; Q9967